=== PATIENT | female | born 1945 | race African-American/Black ===

== ENCOUNTER 2017-02-19 08:32 | Day surgery (SDC) | payer OTHER ==
[2017-02-18 08:21] VITALS: BMI 32.3
[2017-02-19] MEDS ORDERED: MIDAZOLAM HCL 2 MG/2 ML SINGLE DOSE VIAL ONE (12:39)
[2017-02-19] MEDS ORDERED: LIDOCAINE HCL 1%, 10 MG/ML (20ML VIAL) ONE (12:49)
[2017-02-19] MEDS ORDERED: ISOSULFAN BLUE 10 MG/ML VIAL SQ ONE (12:49)
[2017-02-19] MEDS ORDERED: PROPOFOL 20 ML ONE (13:27)
[2017-02-19] MEDS ORDERED: SUCCINYLCHOLINE CHLORIDE 200 MG/10 ML VIAL ONE (13:27)
[2017-02-19] MEDS ORDERED: CLINDAMYCIN PHOSPHATE 900 MG/6 ML VIAL IVPB ONE (13:37)
[2017-02-19] MEDS ORDERED: DEXAMETHASONE SOD PHOSPHATE 4 MG/1 ML VIAL ONE ×2 (13:42→14:40)
[2017-02-19] MEDS ORDERED: KETOROLAC TROMETHAMINE 30 MG/1 ML VIAL ONE (13:42)
[2017-02-19] MEDS ORDERED: ACETAMINOPHEN 325 MG TABLET (FP) PO PRN (15:08)
[2017-02-19] MEDS ORDERED: LACTATED RINGERS SOLUTION 1,000 ML IV SCH (15:15)
[2017-02-19 16:12] VITALS: TEMP 98.7
[2017-02-19 17:20] VITALS: BP 144/75; PULSE 65
--- NOTE | 2017-02-19 23:41 | OP ---
DATE OF OPERATION: 02/19/2017 PREOPERATIVE DIAGNOSIS: Right breast cancer. POSTOPERATIVE DIAGNOSIS: Right breast cancer. PROCEDURE: Right breast ultrasound guided wire localized lumpectomy and sentinel node biopsy. SURGEON: Carrie Graham M.D. ANESTHESIA: General. ESTIMATED BLOOD LOSS: Minimal. COMPLICATIONS: None. This is a sterile procedure. INDICATION FOR PROCEDURE: The patient had a screening mammogram that noted a density in the inner right breast. Needle biopsy showed invasive carcinoma. My recommendation is lumpectomy, sentinel node biopsies. Procedure discussed, all questions answered. PROCEDURE IN DETAIL: The patient was brought to [facility], taken down to nuclear medicine, where technetium sulfur colloid was injected as an intradermal injection in the right breast 2-3 o'clock area on the border. She was then brought up to the operating room, and after induction of general anesthesia and IV antibiotics, the right breast and axilla were prepped. An intraoperative ultrasound was performed and localized the mass in the right breast, 3 o'clock location, 5 cm from the nipple, with a Kopans wire by me. Once the localization was completed, 5 cc of isosulfan blue dye was injected into the right subareolar plexus by me and the breast was massaged for 5 minutes. Next, the breast and axilla were reprepped and draped. A 4-cm incision was made in the right axilla and carried down through the clavicle pectoral fascia to identify sentinel node number 1, that was hot but not blue. There was a sentinel node number 2 that was blue but not hot, and a third sentinel node that was hot but not blue. There was also additional lymph node that in vivo seemed to be hot; however, ex vivo were not, and were sent as right axillary nonsentinel node. There was no other blue dye radioactivity or pathologic sentinel lymph node in the right axilla. Therefore, once hemostasis was assured, was performed. Radial incision was made in the inner right breast, and the wire was used as a guide to get down to the excised en bloc, tied with a long stitch lateral, short stitch superior. Intraoperative ultrasound was performed over the specimen, and I felt that was close inferiorly and medially, therefore took a new inferior margin with a stitch at the old margin, and a new medial margin with a stitch at the old margin. These were all sent to pathology for permanent section. Hemostasis was assured with electrocautery. The parenchyma was approximated with interrupted 2-0 Vicryl, skin approximated with interrupted 3-0 Vicryl, running 4-0 Prolene. A sterile dressing with Tegaderm and 4x4 was applied. She tolerated procedure well, as well as extubating on the operating room table, taken to recovery in good condition. El [id number]
--- NOTE | 2017-02-24 12:03 | PATH ---
Surgical Pathology Report Patient Name: LISBETH NICOLE [facility]. Rec. #: [id number] /Age/Gender: 1945 (Age: 71) / F Account: [id number] Location: [facility] SURGICAL Taken: 02/19/2017 Received: 02/20/2017 Reported: 02/24/2017 Physicians: Carrie Graham M.D. Copy To: [id number] Specimen(s) Received A: RIGHT AXILLARY SENTINEL LYMPH NODE #1 B: RIGHT AXILLARY SENTINEL LYMPH NODE #2 C: RIGHT AXILLARY SENTINEL LYMPH NODE #3 D: RIGHT AXILLARY NOT SENTINEL LYMPH NODE E: RIGHT BREAST NEW INFERIOR MARGIN F: RIGHT BREAST NEW MEDIAL MARGIN G: RIGHT BREAST LUMPECTOMY Clinical History Invasive Final Diagnosis A. AXILLARY SENTINEL LYMPH NODE #1, RIGHT, EXCISION: ONE LYMPH NODE WITH METASTATIC CARCINOMA (1/1). TUMOR DEPOSIT MEASURES 0.9 CM IN GREATEST DIMENSION. B. AXILLARY SENTINEL LYMPH NODE #2, RIGHT, EXCISION: ONE BENIGN LYMPH NODE (0/1). C. AXILLARY SENTINEL LYMPH NODE #3, RIGHT, EXCISION: ONE BENIGN LYMPH NODE (0/1). D. AXILLARY, NOT SENTINEL LYMPH NODE, RIGHT, EXCISION: TWO BENIGN LYMPH NODES (0/2) E. BREAST, RIGHT, NEW INFERIOR MARGIN, EXCISION: FOCAL DUCTAL CARCINOMA IN SITU (DCIS), 2 MM FROM NEW MARGIN. F. BREAST, RIGHT, NEW MEDIAL MARGIN, EXCISION: BENIGN BREAST TISSUE WITH STROMAL FIBROSIS. NEGATIVE FOR CARCINOMA. G. BREAST, RIGHT, LUMPECTOMY: MULTIPLE FOCI OF INVASIVE DUCTAL CARCINOMA (3) AND MULTIPLE FOCI OF MICROINVASIVE CARCINOMA (4, <1MM), MODERATELY DIFFERENTIATED (TUBULE SCORE:2/3, NUCLEAR GRADE: 2/3, MITOTIC SCORE: 2/3; TOTAL NICOLE SCORE: 6/9). INVASIVE CARCINOMA RANGES IN SIZE FROM 0.3 CM TO 1.7 CM IN GREATEST DIMENSION, MICROSCOPICALLY. DUCTAL CARCINOMA IN SITU (DCIS), SOLID, CRIBRIFORM, AND PAPILLARY TYPE, INTERMEDIATE NUCLEAR GRADE WITH MODERATE NECROSIS AND ASSOCIATED MICROCALCIFICATIONS. LYMPHOVASCULAR INVASION IS NOT IDENTIFIED. INVASIVE CARCINOMA IS CLOSE TO (<1MM) FROM ANTERIOR SURGICAL MARGIN. DCIS INVOLVES INKED AND CAUTERIZED SUPERIOR MARGIN. INVASIVE AND IN SITU CARCINOMA ARE >2 MM FROM ALL OTHER SURGICAL MARGINS (INFERIOR, LATERAL, MEDIAL, AND DEEP). SEE SPECIMEN E-F FOR FINAL (INFERIOR AND MEDIAL) MARGINS. REMAINDER OF THE BREAST TISSUE SHOWS FIBROCYSTIC CHANGES AND FIBROADENOMATOID CHANGES, INCLUDING STROMAL FIBROSIS, MICROCYSTS, APOCRINE METAPLASIA, ADENOSIS, USUAL AND ATYPICAL DUCTAL HYPERPLASIA, AND MICROCALCIFICATIONS WITH BLOOD VESSEL BROOKE. PATHOLOGIC STAGE (pTNM): pT1c pN1a. SEE ALSO INVASIVE CARCINOMA CASE SUMMARY BELOW. Comments Breast Invasive Carcinoma: Surgical Pathology Cancer Case Summary Based on AJCC/UICC TNM, 7th edition Procedure _X__ Excision with image-guided localization Lymph Node Sampling _X__ Ideal lymph node(s) _X_ Axillary dissection (partial or complete dissection) Specimen Laterality _X_ Right Tumor Size: Greatest dimension of largest focus of invasion over 1 mm: 1.7 cm Tumor Focality _X_ Multiple foci of invasive carcinoma Number of foci: 3 Sizes of individual foci: 0. 3 cm, 0.7 cm, 1.7 cm _X_ Multiple foci of microinvasive carcinoma (4) Ductal Carcinoma In Situ (DCIS) _X_ DCIS is present _X_ as a major component (>25% of tumor, extensive intraductal component) Histologic Type of Invasive Carcinoma : _X_ Invasive carcinoma of no special type (ductal, not otherwise specified) Histologic Grade: (Nicole Histologic Score) Tubular Differentiation _X_ Score 2 Nuclear Pleomorphism _X_ Score 2 Mitotic Rate _X_ Score 2 Overall Grade _X_ Grade 2: score of 6 (moderately differentiated) Margins _X__ Margin(s) close to (< 1 mm) invasive carcinoma (Anterior) _X__ Margins involved by DCIS (Superior) Remaining margins are uninvolved by carcinoma,> 2 mm away. Lymph-Vascular Invasion _X__ Not identified Lymph Nodes Total number of lymph nodes examined (sentinel and nonsentinel): _5__ Number of sentinel lymph nodes examined: _3__ Number of lymph nodes with macrometastases ( > 2 mm): _1__ Size of largest metastatic deposit (if present): _0.9 cm__ Extranodal Extension _X__ Not identified Pathologic Staging (pTNM) Primary Tumor (Invasive Carcinoma): pT1c Regional Lymph Nodes (pN): pN1a Electronically Signed Yomaira Rojas M.D. Addendum Reported: 02/26/2017 Addendum Diagnosis Results of Estrogen Receptor (ER) and Progesterone Receptor (NC) studies performed on block "G1 " at [facility] are as follows: ER (clone [id number] mouse monoclonal antibody by [employer]): 99 % nuclear staining with strong intensity (Positive). NC (clone16 mouse monoclonal antibody by [employer]): 99% nuclear staining with strong intensity (Positive). Results of Her2 (IHC) & Ki-67 studies performed on block "G1 " at [place], [place] ([id number]) are as follows: Her2 IHC (EP3 from [employer], formerly known as [id number], using [employer] Polymer Refine detection kit): 1+ (Negative) Ki-67: up to 25% (Intermediate proliferative index) Positive and negative controls (internal if applicable) show appropriate results. Formalin fixation and cold ischemic times are within current ASCO/CAP recommendations for ER, NC and Her2 testing. Yomaira Rojas M.D. Gross Description A. Received in formalin labeled "right axillary sentinel lymph node #1," is a 1.0 x 0.5 x 0.5 cm cedillo, irregular lymph node with attached fat. The specimen is bisected and entirely submitted in one cassette. B. Received in formalin labeled "right axillary lymph node #2," is a 1.2 x 0.7 x 0.6 cm cedillo, irregular lymph node with attached fat. The specimen is bisected and entirely submitted in 2 cassettes. C. Received in formalin labeled "right axillary lymph node #3," is a 0.4 x 0.3 x 0.2 cm cedillo, irregular lymph node with attached fat. The specimen is submitted in toto in one cassette. D. Received in formalin labeled "right axillary non-sentinel lymph nodes," is a 4.3 x 4.0 x 1.1 cm aggregate of yellow, lobulated adipose tissue. Sectioning reveals 3 possible lymph nodes ranging from 0.4 x 0.3 x 0.3 cm to 1.0 x 0.5 x 0.3 cm. The lymph nodes are entirely submitted in 3 cassettes as follows: 1-one whole bisected lymph node; 2-one whole bisected possible lymph node; 3-one whole lymph node. E. Received in formalin labeled "right breast new inferior margin," is a 3.2 x 2.7 x 0.9 cm irregular portion of fibroadipose tissue with a suture marking the old margin, per the surgeon. The new margin is inked green and the specimen is serially sectioned. The specimen is entirely submitted in 4 cassettes F. Received in formalin labeled "right breast new medial margin," is a 3.0 x 2.5 x 0.9 cm irregular portion of fibroadipose tissue with a suture marking the biopsy cavity side, per the surgeon. The new margin is inked green and the specimen is serially sectioned. The specimen is entirely submitted in 4 cassettes. G. Received in formalin, labeled "right breast lumpectomy," is a 6.0 x 4.4 x 2.7 cm. cedillo-yellow, irregular, portion of fibroadipose tissue with a needle localization wire present. There is a short suture marking the superior aspect and a long suture marking the lateral aspect, per the surgeon. There is no skin or nipple present. The specimen is inked as follows: superior and lateral blue; inferior green; medial yellow; anterior red; deep black. The specimen is serially sectioned from lateral to medial. Sectioning reveals a 1.7 x 1.4 x 1.3 cm cedillo, indurated mass at 0.1 cm from the inferior margin, 0.3 cm from the superior margin and 0.9 cm from the anterior margin. The remaining margins appear clear of the mass. There is abundant dense, white, focally firm fibrous tissue surrounding the mass. There is a 0.7 x 0.5 x 0.4 cm second mass abutting the anterior margin. This second mass is 0.8 cm medial to the first mass. Buffing Wheel Raker sections are submitted in 12 cassettes as follows: 1-4-one full face section each of the larger mass (each with superior and inferior margins); 5-6-smaller mass (each with anterior, superior and inferior margins); 7-section between first and second mass; 8-uninvolved fibrous tissue with superior margin; 9-uninvolved fibrous tissue with inferior margin; 10-deep margin; 11-lateral margin; 12-medial margin. Total formalin fixation time: Approximately 24 hours 02/20/201702/20/2017
== END 2017-02-19 17:29 | disposition home or self-care (01) ==
LOC: JASU-SURG 08:32
PROVIDERS: ATTEND Surgery
PROC: 07B80ZX Excision of Right Internal Mammary Lymphatic, Open Approach, Diagnostic (ICD-10-PCS; 2017-02-19)
PROC: 0HBT0ZZ Excision of Right Breast, Open Approach (ICD-10-PCS; principal; 2017-02-19 12:30)
PROC: 07B50ZX Excision of Right Axillary Lymphatic, Open Approach, Diagnostic (ICD-10-PCS; 2017-02-19 12:30)
DX: C50.911 Malignant neoplasm of unspecified site of right female breast (principal)
CPT/HCPCS: 78195-TC; 88307-TC; 94760; A9541

== ENCOUNTER 2017-03-11 09:50 | Day surgery (SDC) | payer OTHER ==
[2017-03-10 09:59] VITALS: BMI 32.3
[2017-03-11] MEDS ORDERED: LIDOCAINE HCL 1%, 10 MG/ML (20ML VIAL) ONE (12:19)
[2017-03-11] MEDS ORDERED: MIDAZOLAM HCL 2 MG/2 ML SINGLE DOSE VIAL ONE (12:31)
[2017-03-11] MEDS ORDERED: PROPOFOL 20 ML ONE (12:31)
[2017-03-11] MEDS ORDERED: LEVOFLOXACIN 500 MG PREMIX BAG IVPB ONE (12:35)
[2017-03-11] MEDS ORDERED: LEVOFLOXACIN 500 MG IVPB 500 MG/100 ML BAG IVPB ONE (12:38)
[2017-03-11] MEDS ORDERED: LIDOCAINE HCL 1%, 10 MG/ML (50 mL VIAL) IJ ONE (12:39)
[2017-03-11] MEDS ORDERED: ONDANSETRON 4 MG/2 ML VIAL IVPUSH PRN (12:49)
[2017-03-11] MEDS ORDERED: LACTATED RINGERS SOLUTION 1,000 ML IV SCH (13:00)
--- NOTE | 2017-03-11 13:05 | HP ---
History & Physical Update - History History: No Change - Physical Physical: No Change - Assessment Assessment: No Change - Plan Plan: No Change
[2017-03-11] MEDS ORDERED: oxyCODONE HCL 5 MG TABLET PO ONE (15:30)
[2017-03-11] MEDS ORDERED: oxyCODONE HCL 5 MG TABLET ONE (15:31)
[2017-03-11 17:05] VITALS: PULSE 70
[2017-03-11 17:08] VITALS: BP 118/56; TEMP 97.8
--- NOTE | 2017-03-12 09:35 | OP ---
DATE OF OPERATION: 03/11/2017 PREOPERATIVE DIAGNOSIS: Right breast cancer. POSTOPERATIVE DIAGNOSIS: Right breast cancer. PROCEDURE: Re-excision lumpectomy. SURGEON: Carrie Graham MD ANESTHESIA: General. ESTIMATED BLOOD LOSS: Minimal. COMPLICATIONS: None. This is a sterile procedure. INDICATION FOR PROCEDURE: The patient had a right lumpectomy, sentinel node biopsy that noted a positive superior margin on the DCIS as well as a close margin anteriorly on the invasive carcinoma. and I recommended a re-excision. The procedure was discussed, with all the questions answered. PROCEDURE IN DETAIL: Patient was brought to [facility], taken into the operating room. After induction of general anesthesia and IV Levaquin , the right breast was prepped and draped in the usual sterile fashion. The area on the inner right breast was anesthetized with 1% lidocaine without epinephrine. The prior incision was reopened sharply, and this ellipse of skin was taken as a new anterior margin, tagged with a long stitch lateral, short stitch superior and sent for permanent section. Next, the seroma cavity was entered and the seroma was drained. A new superior margin was taken with a stitch at the old margin, sent for pathology analysis for permanent section. Hemostasis was assured with electrocautery. The parenchyma was approximated with interrupted 2-0 Vicryl, skin approximated with interrupted 3-0 Vicryl and running 4-0 Biosyn. A sterile dressing with Tegaderm, 4 x 4's applied. She tolerated the procedure well, was extubated on the operating room table and taken to recovery in good condition. El [id number] MTDNestor
--- NOTE | 2017-03-13 10:11 | PATH ---
Surgical Pathology Report Patient Name: LISBETH NICOLE [facility]. Rec. #: [id number] /Age/Gender: 1945 (Age: 71) / F Account: [id number] Location: [facility] SURG[facility] Taken: 03/11/2017 Received: 03/11/2017 Reported: 03/13/2017 Physicians: Carrie Graham M.D. Specimen(s) Received A: RIGHT BREAST NEW ANTERIOR MARGIN B: RIGHT BREAST NEW SUPERIOR MARGIN Clinical History Right breast cancer with close margins Final Diagnosis A. BREAST, RIGHT, NEW ANTERIOR MARGIN, EXCISION: BENIGN BENIGN BREAST TISSUE WITH STROMAL FIBROSIS AND CHANGES OF PRIOR PROCEDURE. SKIN WITH MILD CHRONIC INFLAMMATION AND CHANGES OF PRIOR PROCEDURE. B. BREAST, RIGHT, NEW SUPERIOR MARGIN, EXCISION: BENIGN BREAST TISSUE WITH FIBROCYSTIC CHANGES INCLUDING STROMAL FIBROSIS, RARE MICROCYSTS, AND FOCAL USUAL DUCTAL HYPERPLASIA. CHANGES OF PRIOR PROCEDURE PRESENT. Electronically Signed Yomaira Rojas M.D. Gross Description A. Received in formalin labeled "right breast new anterior margin," is a 4.5 x 1.2 cm cedillo-brown, elliptical portion of skin excised to a depth of 2.0 cm. There is a short suture marking the superior margin and a long suture marking the lateral tip of the specimen, per the surgeon. The epidermal surface displays a central, linear, well-healed scar. The specimen is inked as follows: Superior blue; inferior green; lateral tip red; medial to yellow. The specimen is serially sectioned from lateral to medial. The specimen is entirely and sequentially submitted in 9 cassettes with the lateral end in cassette 1 and the medial end in cassette 9. B. Received in formalin labeled "right breast new superior margin," is a 5.2 x 4.3 x 1.9 cm irregular portion of fibroadipose tissue with a suture marking the old margin, per the surgeon. The new margin is inked blue and the specimen is serially sectioned. The specimen is entirely and sequentially submitted in 16 cassettes. 03/11/201703/11/2017
== END 2017-03-11 17:10 | disposition home or self-care (01) ==
LOC: JASU-SURG 09:50
PROVIDERS: ATTEND Surgery
PROC: 0HBT0ZZ Excision of Right Breast, Open Approach (ICD-10-PCS; principal; 2017-03-11 13:00)
DX: C50.911 Malignant neoplasm of unspecified site of right female breast (principal)
CPT/HCPCS: 88307-TC